=== PATIENT | female | born 1995 | race Asian ===

== ENCOUNTER → 2018-08-15 | Outpatient (REF) | payer OTHER ==
[~2018-08-15] MED LIST: FERR325T16 PO; IRON27TA2 PO; PREN1PAK PO; VITA500T PO; VITA500T3 PO; [UNRECOGNIZED DRUG - CODE] EX
[2018-08-15 20:51] LABS: CHLAMYDIA DNA AMPLIFICATION NEGATIVE (NEGATIVE); GC DNA AMPLIFICATION NEGATIVE (NEGATIVE)
== END ==
LOC: M LAB REF 15:16
PROVIDERS: ATTEND Physician Assistant
DX: R30.0 Dysuria (principal)

== ENCOUNTER 2019-01-14 12:03 | Outpatient (CLI) | payer OTHER ==
[~2019-01-14] VITALS: Ht 170.2 cm; Wt 99.6 kg
[~2019-01-14 12:03] MED LIST changes: +CYAN500T8 PO; +METR-265 PO; +QC A10TA PO; -VITA500T3 PO
[2019-01-14] MEDS ORDERED: FLUC150T PO (12:36)
--- NOTE | 2019-01-14 13:15 | IPNPDOC ---
Text Note Date of Service The patient was seen on 01/14/19. NOTE patient is a 23 yo G1 @ 27+6 wks gestation presents with concern for not feeling baby move x 3 days. patient states baby used to be very active before. She sees her abdomen move but does not feel the baby move. having mild epigastric pain. denies cramping/vb/lof/fever. vitals: normal NAD, laying in bed back without tenderness abd: gravid, soft, nt le: no edema/erythema/tenderness fht: 130/mod lynette/no accel, no decel, reasuring for gestational age toco: quiet. a/p patient at 27+6wks, normal exam. discussed with patient regarding kick count and contractions. return precautions given. f/u as scheduled in clinic or sooner as indicated. DO VIBHA Blanchard LUAT N. DO Jan 14, 2019 13:15
[2019-03-27] MEDS ORDERED: FERR325T18 PO (11:01)
== END 2019-01-14 13:04 | disposition home or self-care (01) ==
LOC: M LDO 12:03
PROVIDERS: ATTEND Obstetrics & Gynecology
DX: O36.8120 Decreased fetal movements, second trimester, not applicable or unspecified (principal); Z3A.27 27 weeks gestation of pregnancy
CPT/HCPCS: G0378; G0463

== ENCOUNTER 2019-04-06 20:23 | Outpatient (CLI) | payer OTHER ==
[~2019-04-06] VITALS: Ht 170.2 cm; Wt 107.0 kg
[~2019-04-06 20:23] MED LIST changes: +FERR325T18 PO; +FLUC150T PO
[2019-04-06 20:45] VITALS: BP 128/61
--- NOTE | 2019-04-06 22:37 | IPNPDOC ---
Text Note Date of Service The patient was seen on 04/06/19. NOTE Triage Note Beatris is a 23yo with SIUP at 39+wk who presents tonight for concern regarding her bp that she checked at [facility] because she felt slightly lightheaded. She states that her systolic bp was in the 160's. She notes that she sat for a minute or so before taking it and then re-checked it and got a similar result. She has no JOSE/vision changes/RUQ pain. Feels good mo vement. No regular ctx/LOF/vaginal bleeding. No prior abnormal bp's in this . Elevated 1hr glucola with normal 3hr GTT. Anemia with beta thal, received iron infusion 03/27. PMhx significant for obesity (starting BMI 33) Vitals wnl (normotensive), afebrile General: WDWN, sitting in bed resting comfortably Abdomen: soft, gravid, NTTP Extremities: no edema of BLE NST reactive with +accels, -decels, mod lynette Point: no ctx Assessment: Beatris is a 23yo with SIUP at 39+wk with no evidence of el evated bp. Has never had an elevated bp on chart review of her entire . status reassuring. Plan: -Safe for discharge home -Keep next OB visit this week on 04/08 -Return precautions discussed -Encouraged excellent hydration Dr. Asha Aceves MD VS,Lacey, I+O VS, Lacey, I+O Vital Signs Date Time Temp Pulse Resp B/P (MAP) Pulse Ox O2 Delivery O2 Flow Rate FiO2 04/06/19 20:45 97.8 103 18 128/61 (83) 98 Asha Aceves MD Apr 06, 2019 22:37
== END 2019-04-06 21:30 | disposition home or self-care (01) ==
LOC: M LDO 20:23
PROVIDERS: ATTEND Obstetrics & Gynecology
DX: O26.893 Other specified pregnancy related conditions, third trimester (principal); R51 Headache; R42 Dizziness and giddiness; Z3A.39 39 weeks gestation of pregnancy
CPT/HCPCS: 59025; G0378; G0463

== ENCOUNTER 2019-04-12 09:53 | Outpatient (CLI) | payer OTHER ==
[~2019-04-12] VITALS: Ht 170.2 cm; Wt 108.1 kg
[2019-04-12 10:14] VITALS: BP 112/59
[2019-04-12] MEDS ORDERED: IRONTAB3 IV (10:39)
--- NOTE | 2019-04-12 11:28 | IPNPDOC ---
Text Note Date of Service The patient was seen on 04/12/19. NOTE patient is a 23 yo G1 @ 40+2wks gestation presents with concern for decreased movement since this AM. denies ctx/lof/vb. feeling baby move while in triage. vitals: normal nad abd: gravid, soft, nt, cephalic by anthony le: no edema/erythema/tenderness fht: 135/mod lynette/pos accel/no decel toco: quiet a/p patient @ 40+2wks doing well. discussed return precautions. f/u in clinic as scheduled. VS,Fishbone, I+O VS, Fishbone, I+O Vital Signs Date Time Temp Pulse Resp B/P (MAP) Pulse Ox O2 Delivery O2 Flow Rate FiO2 04/12/19 10:14 98.5 80 16 112/59 (76) KIRA DUNNE DO Apr 12, 2019 11:28
== END 2019-04-12 11:30 | disposition home or self-care (01) ==
LOC: M LDO 09:53
PROVIDERS: ATTEND Obstetrics & Gynecology
DX: O36.8130 Decreased fetal movements, third trimester, not applicable or unspecified (principal); Z3A.40 40 weeks gestation of pregnancy
CPT/HCPCS: 59025; G0378; G0463

== ENCOUNTER 2019-04-14 01:41 | Outpatient (CLI) | payer OTHER ==
[~2019-04-14 01:41] MED LIST changes: +IRONTAB3 IV
[2019-04-14 01:57] VITALS: BP 128/83
--- NOTE | 2019-04-14 02:35 | IPNPDOC ---
Text Note Date of Service The patient was seen on 04/14/19. NOTE 23 yo at 40+4 weeks gestation presented to L&D reporting regular, panful contractions. She has some discharge but denies any leakage of fluid or vaginal bleeding. She endorses movement. Chaperoned by L&D RN Vitals - VSS, afebrile, normotensive, non tachycardic General - AAOX3, sitting up in bed, pleasant and conversant, NAD Abdomen - Gravid uterus, no fundal tenderness Cervix: 1-2/50/-3 FHR tracing - Reactive NST, +accels, no decels, moderate variability, Irregular contractions on toco Patient not in active labor. status reassuring. Discharged home with return precautions. She has an appointment today in the office in ~8 hours. Return to care sooner for any urgent concerns. All patient questions answered. DO MICHELLE Gomez CHRISTOPHER J. DO Apr 14, 2019 02:35
== END 2019-04-14 02:32 | disposition home or self-care (01) ==
LOC: M LDO 01:41
PROVIDERS: ATTEND Obstetrics & Gynecology
DX: O47.1 False labor at or after 37 completed weeks of gestation (principal); Z3A.40 40 weeks gestation of pregnancy
CPT/HCPCS: 59025; G0378; G0463

== ENCOUNTER 2019-04-16 01:40 | Inpatient (IN) | payer OTHER ==
[2019-04-16] VITALS (55 sets, daily range): BP systolic 102–153; BP diastolic 55–92
[~2019-04-16] VITALS: Ht 170.2 cm; Wt 108.7 kg
[2019-04-16] MEDS ORDERED: LACTATED RINGER'S 1000 ML IV STA (03:54)
[2019-04-16 04:07] LABS: HEMATOCRIT 30.4 % (36.0-47.0); HEMOGLOBIN 8.9 g/dl (12.0-15.5); MEAN CORPUSCULAR HGB CONC 29.3 g/dl (32.0-36.5); MEAN CORPUSCULAR VOLUME 71.7 fl (80.0-96.0); PLATELET COUNT, AUTOMATED 223 10^3/uL (150-450); RED BLOOD COUNT 4.24 10^6/uL (4.00-5.40); WHITE BLOOD COUNT 22.3 10^3/uL (4.0-10.0)
[2019-04-16 04:16] LABS: ALT/SGPT 19 U/L (12-78); BILIRUBIN,TOTAL 1.3 MG/DL (0.2-1.0); GLOMERULAR FILTRATION RATE > 60.0 (>60); LDH LACTATE DEHYDROGENASE 282 U/L (84-246); URIC ACID 5.1 MG/DL (2.6-6.0)
--- NOTE | 2019-04-16 04:22 | HPEPDOC ---
Obstetrical History & Physical General Date of Admission Apr 16, 2019 at 02:13 History of Present Illness Beatris is a 23yo with SIUP at 40w6d by lmp c/w 8wk u/s who presents with increasingly painful and consistent ctx for the past 3 hours. Just after admission, she had SROM, thick mec, at 0400. No vaginal bleeding other than slight blood tinged mucous lost over the past two days since cervix check in the office where she was 2cm. She has felt good movement. No f/c/n/v/CP/SOB/JOSE/vision changes. Chief Complaint: Contractions, term, LOF, term Information Provided By: Patient Care Care: Good Care Dating Final EDC: Apr 10, 2019 Final EDC by: LMP, 1st trimester (US) Antepartum Course Diagnos(e)s Obesity with starting BMI 33 and elevated 1hr glucola w/normal 3hr GTT, anemia related to beta thal minor taking iron/vit C having received iron infusions 12/11/18 and 03/27/19 Height (inches): 67 Pre- weight (lbs.): 212 Admission Weight (lbs.): 235 Change in Weight (lbs.): 23 Past Medical History Past Obstetrical History : Past Obstetrical History: Primgravida COOK VACUUM KETTLE History: No pertinent history Past Medical History Medical History Betal thal minor with chronic anemia Surgical History: Other (oral surgery) Family History Significant Family History: No pertinent family hx Social History Marital Status: Family situation: Spouse/partner home Psychosocial History: No pertinent psych hx * Smoker: non-smoker Alcohol: Denies Drugs: denies Imunizations Tdap status: current Influenza Status: current Allergies Coded Allergies: No Known Allergies (Unverified , 01/14/19) Medications Scheduled Ascorbic Acid (Vitamin C) 500 Mg Tab, 1 TAB PO DAILY Ferrous Sulfate (Ferrous Sulfate) 325 Mg Tablet, 1 TAB PO DAILY [Iron] , IV Q30D Miscellaneous Medications [id number]/Levomefolate/Omega3/Dha ( Plus-Dha Combo Pack) 1 Sean Sean, 1 SEAN PO Physical Examination Physical Examination GENERAL: Alert and oriented times three. ABDOMEN: Gravid and non-tender to touch. FETUS: Is vertex (VTX) by sterile vaginal examination (SVE) EXTREMITIES: trace edema BLE Laboratory Data 24H LABS Laboratory Tests 2 04/16/19 02:20: Serology Scanned Report Hepatitis B Testing CBC/BMP 13 Apr 2019 Hgb 9/Hct 29.5, plt 250 Pertinent Laboratoy Data Blood Type: O+ RBC Antibody Screen: Negative HIV: Negative Hepatitis B: Negative Hepatitis C: Unknown Rapid Plasma Reagin: Nonreactive Rubella: Immune Varicella: Immune Chlamydia/Gonorrhea: Negative Group B Streptococcus: Negative Quad Screen Test: Negative Glucose Tolerance Test: 150 (88/177/137/116) Anatomy Ultrasound Ultrasound Date: Nov 21, 2018 Placenta Location: Posterior Normal Anatomy: Yes Placenta Previa: No Steroid Therapy Steroid Therapy: No Vaginal Examination Dilation: 4 cm Effacement: 50% Station: -2 Cervical Consistency: Soft Cervical Position: Anterior Presentation: Cephalic presentation Assessment Heart Rate (FHR): 160 Variability: Minimal to moderate Accelerations: Positive Decelerations: None Tocometer Contractions: Yes Frequency: regular, every 2-5 min. Duration: greater than 60 seconds Strength: palpated as strong Assessment/Plan Assessment Beatris is a 23yo with SIUP at 40w6d by lmp c/w 8wk u/s in active labor with SROM, thick mec, upon admission at 0400. Cat I-II FHRT w/bl 160, min-mod lynette, +accels, -decels. SCE 4/50/-2. Ctx q2-3min. GBS neg. Cephalic by SCE. course/PMhx significant for: Obesity with starting BMI 33 and elevated 1hr glucola w/normal 3hr GTT, anemia related to beta thal minor taking iron/vit C having received iron infusions 12/11/18 and 03/27/19. H/H on 04/13 was 9/29.5. Plan Admit and orient. Residential Leasing Manager and consent. Diet: clear liquids Group B Streptococcus (GBS) negative Labs and intravenous (IV) per unit protocol. also pre-E panel and urine prot:creat Lactated Ringers (LR): Bolus 500 mL, then at 125 mL/hr. Anticipate normal spontaneous delivery () Nursing staff will inform director of religious life of presence of meconium Candidate for epidural as desired MD Ketan Adame Katrina D MD Apr 16, 2019 04:15
[2019-04-16 04:56] LABS: CREATININE,RANDOM URINE 27.4 MG/DL; TOTAL PROTEIN,RANDOM URINE 10.2 MG/DL (0.0-12.0)
[2019-04-16] MEDS: LR 1,000 ML IV SCH ×4 (05:04→15:34)
[2019-04-16] MEDS ORDERED: ACETAMINOPHEN 500 MG TAB PO ONE (05:15)
[2019-04-16] MEDS: AMPICILLIN SOD/SULBACTAM SOD 3 GM in D5W MINI-BAG PLUS 100 ML IV SCH ×2 (05:37→10:57)
[2019-04-16] MEDS ORDERED: FENTANYL 2MCG/ML ROPIVACAINE 0.2% IN 0.9% NACL 100ML IVBAG As Ordered ONE (07:18)
[2019-04-16] MEDS ORDERED: diphenhydrAMINE INJ 50MG/ML VIAL (J1200) IV PRN ×2 (07:35→13:48)
[2019-04-16] MEDS ORDERED: FENTANYL/ROPIVACAINE/NACL BAG 100 ML EPIDURAL SCH (07:35)
[2019-04-16] MEDS ORDERED: EPIDURAL COMMENT XX SCH (07:35)
[2019-04-16] MEDS ORDERED: NALOXONE INJ 0.4 MG/1 ML VIAL (J2310) IV PRN ×3 (07:35→13:48)
[2019-04-16] MEDS ORDERED: LACTATED RINGER'S 1000 ML IV PRN (07:35)
[2019-04-16] MEDS ORDERED: EPIDURAL/PCA KEYS XX PRN (07:35)
[2019-04-16] MEDS ORDERED: ePHEDrine SULFATE 25 MG/5 ML(5MG/ML) SYRINGE IV PRN (07:35)
[2019-04-16] MEDS ORDERED: ONDANSETRON 4MG/2ML VIAL (J2405) IV PRN ×4 (07:35→20:30)
[2019-04-16] MEDS ORDERED: REFRIGERATOR IV KEYS XX PRN (07:35)
[2019-04-16] MEDS ORDERED: OXYTOCIN DRIP 30 UNITS in IV 1 EA IV SCH (08:00)
--- NOTE | 2019-04-16 08:29 | IPNPDOC ---
Text Note Date of Service The patient was seen on 04/16/19. NOTE Intrapartum Note I was called by RN regarding persistent tachycardia and new fever around 0500. Confirmed oral temp of 101F, which is unexpected given that she had SROM at 0400 and is GBS negative. I initiated Unasyn 3g q6hr with tylenol given the new diagnosis of chorioamnionitis. Patient is now receiving epidural. FHRT Cat I-II with min-mod lynette, no decels, occasional accels. Patient had a couple mild range bp's on admission, so urine prot:creat ordered which returned 0.37, so she also has new dx of pre-E withOUT severe features. Ctx have spaced out, so initiating pitocin. Report given to MARY Cornell and Dr. Mcneal. Dr. Asha Aceves MD VS,Lacey, I+O VS, Lacey, I+O Laboratory Tests 04/16/19 02:27 Vital Signs Date Time Temp Pulse Resp B/P (MAP) Pulse Ox O2 Delivery O2 Flow Rate FiO2 04/16/19 06:15 101.2 04/16/19 05:45 114 125/75 (92) 04/16/19 05:04 18 Asha Aceves MD Apr 16, 2019 08:29
--- NOTE | 2019-04-16 11:07 | IPN ---
DATE: 04/16/2019 This is a 23-year-old 1, para 0 at 40 and 6, who presented with contractions after a spontaneous rupture of membranes of thick meconium. While here in labor and delivery, she never established a category 1 strip, it was basically category 2 requiring oxygen boluses, positional change and with resuscitative mass measures did not demonstrate any change in the heart rate strip however, there were no decelerations. There was no accelerations. There was variability from mild to moderate with a baseline of 150-160. Her vital signs noted that at 8:15 a.m. her temperature was 99.3. Earlier at 6:15 in the morning had one elevated temperature of 101.2. The previous physician considered that as chorioamnionitis. Her CBC indicated an elevated white count at 22.3. With her chemistry, it showed uric acid was normal, protein creatinine ratio was 0.37, which would give her diagnosis of preeclampsia. Repairing Calibrator consulting with the primary therapist because of the heart rate strip and failure to progress after 4 hours. The thought process was the possibility of section despite the resuscitative measures. On pelvic examination, it was noted that the baby's head was ballotable, not well applied to the cervix. There was meconium present, but she is 6 cm, rather thick, but still made some significant progress from before. With oxygen, the baby's comes to a category 1 strip. Contractions are spaced but she is making some progress. We will allow her to continue on this path as long as the baby is not compromised and reassess in a couple of hours time. In summary, we have a late term with meconium stained liqua, possible diagnosis of chorioamnionitis and preeclampsia with some significantly slow progress in the second stage.
[2019-04-16] MEDS ORDERED: ACETAMINOPHEN *IV* 1,000 MG in IV 1 EA IV ONE (12:00)
[2019-04-16] MEDS ORDERED: BICITRA 30ML SOLN UDC PO ONE (12:15)
[2019-04-16] MEDS ORDERED: ceFAZolin SOD 2 GM in IV 1 EA IV ONE (12:15)
[2019-04-16] MEDS ORDERED: AZITHROMYCIN INJ 500 MG, VIAL MATE ADAPTER 1 EACH in D5W 250 ML IV ONE (12:15)
[2019-04-16] MEDS ORDERED: BUPIVACAINE HCL 0.25% 10 ML VIAL SC ONE (12:15)
[2019-04-16] MEDS ORDERED: LIDOCAINE 2% W/EPIN INJ 20ML **PRES FREE As Ordered ONE (12:36)
[2019-04-16] MEDS ORDERED: OXYTOCIN INJ 10 UNITS/ML VIAL (J2590) As Ordered ONE ×3 (12:40→12:44)
[2019-04-16] MEDS ORDERED: ACETAMINOPHEN 650 MG SUPP PR SCH (13:00)
[2019-04-16] MEDS ORDERED: ONDANSETRON 4MG/2ML VIAL (J2405) As Ordered ONE (13:05)
[2019-04-16] MEDS ORDERED: KETOROLAC 60 MG/2 ML VIAL (J1885) As Ordered ONE (13:05)
[2019-04-16] MEDS ORDERED: dexameTHASONE 4 MG/ML 1ML VIAL (J1100) As Ordered ONE (13:05)
[2019-04-16 13:27] LABS: CORD GAS ABE A -3.8; CORD GAS HCO3 A 24.3 MEQ/L; CORD GAS O2 SAT A 16.8 %; CORD GAS PCO2 A 56.7 mmHg; CORD GAS PH A 7.249 UNITS; CORD GAS PO2 A 12.3 mmHg; CORD GAS SBC A 19.6 MEQ/L
[2019-04-16 13:29] LABS: CORD GAS ABE V -3.3; CORD GAS HCO3 V 23.3 MEQ/L; CORD GAS O2 SAT V 48.6 %; CORD GAS PCO2 V 47.5 mmHg; CORD GAS PH V 7.308 UNITS; CORD GAS PO2 V 23.1 mmHg; CORD GAS SBC V 20.6 MEQ/L; CORD GAS TCO2 V 24.7 MEQ/L
[2019-04-16] MEDS ORDERED: ACETAMINOPHEN 1000MG 100ML IV BTL (OFIRMEV) (J0131 PER 10MG) As Ordered ONE (13:30)
[2019-04-16] MEDS ORDERED: MORPHINE PRES-FREE INJ 10 MG/10 ML VIAL (J2274) As Ordered ONE (13:45)
[2019-04-16] MEDS ORDERED: METOCLOPRAMIDE INJ 10MG/2ML VIAL (J2765) IV PRN ×3 (13:48→20:30)
[2019-04-16] MEDS ORDERED: NALBUPHINE HCL 10 MG/ML AMP (J2300) IV PRN (13:48)
[2019-04-16] MEDS ORDERED: fentaNYL 100 MCG/2 ML INJECTION (J3010) IV PRN (14:30)
[2019-04-16] MEDS ORDERED: LR 1,000 ML IV SCH (14:30)
[2019-04-16] MEDS ORDERED: PERCOCET 5MG/325MG TAB PO PRN ×3 (14:30→15:45)
[2019-04-16] MEDS ORDERED: RHOGAM 300 MCG (1500 IU) INJ (J2790) IM SCH (15:45)
[2019-04-16] MEDS ORDERED: ANUSOL HC CREAM 30GM TOP PRN (15:45)
[2019-04-16] MEDS ORDERED: DOCUSATE SODIUM 100 MG CAP PO PRN (15:45)
[2019-04-16] MEDS ORDERED: AMPICILLIN SOD/SULBACTAM SOD 3 GM in D5W MINI-BAG PLUS 100 ML IV ONE ×2 (15:45→17:00)
[2019-04-16] MEDS ORDERED: METHYLERGONOVINE MALEATE 0.2 MG TAB PO PRN (15:45)
[2019-04-16] MEDS ORDERED: ACETAMINOPHEN 500 MG TAB PO PRN (15:45)
[2019-04-16] MEDS ORDERED: OXYTOCIN DRIP 30 UNITS in IV 1 EA IV ONE (15:45)
[2019-04-16] MEDS ORDERED: ACETAMINOPHEN TAB 650MG DOSE (2X325MG) PO PRN (15:45)
[2019-04-16] MEDS ORDERED: MEASLES,MUMPS,RUBELLA VACCINE INJ (MMR-II) (90707) SC SCH (15:45)
--- NOTE | 2019-04-16 17:55 | IPN ---
DATE: 04/16/2019 This lady is a 1, para 0 admitted 40 and 6 with contractions meconium stained liquor nonreassuring heart tones. She eventually was evaluated and found to progress from 4 cm to 6 cm still with meconium stained Liqua and an intermittent nonreassuring heart tones despite the multiple resuscitative measures after 2 hours in evaluation with now a tachycardia of 180 we elected to go ahead with a primary section. We discussed risks and benefits section for the mother and her and the fact that we have a nonreassuring heart tone elevated temperature in the mother 101 and she is not progressing. The safest measure would be a primary section. Risks and benefits including hemorrhage, infection, perforation, , reoperation, remote possibility hysterectomy, remote possibility of laceration, remote possibility of the baby in NICU because of meconium aspiration or the fever. Risks and benefits all were discussed and reviewed all questions were answered. 20-minute discussion. We now await anesthesia for a top off of her epidural.
[2019-04-16 20:21] LABS: HEMATOCRIT 25.4 % (36.0-47.0); HEMOGLOBIN 7.5 g/dl (12.0-15.5); MEAN CORPUSCULAR HGB CONC 29.5 g/dl (32.0-36.5); MEAN CORPUSCULAR VOLUME 71.1 fl (80.0-96.0); PLATELET COUNT, AUTOMATED 227 10^3/uL (150-450); RED BLOOD COUNT 3.57 10^6/uL (4.00-5.40); WHITE BLOOD COUNT 21.5 10^3/uL (4.0-10.0)
[2019-04-16] MEDS: KETOROLAC 30 MG/ML VIAL (J1885) IV SCH (20:48)
--- NOTE | 2019-04-16 23:14 | RO ---
DATE OF PROCEDURE: 04/16/2019 PREOPERATIVE DIAGNOSES: Nonreassuring heart tones, chorioamnionitis, meconium liquor, tachycardia, maternal fever, beta thalassemia minor, history of pre-eclampsia. POSTOPERATIVE DIAGNOSES: Nonreassuring heart tones, chorioamnionitis, meconium liquor, tachycardia, maternal fever, beta thalassemia minor, history of pre-eclampsia, plus cord entrapment. OPERATION PROPOSED: Primary section. OPERATION PERFORMED: Primary section. SURGEON: Marco Mcneal MD UNIT MANAGER CONVENIENCE STORES: Mehul Cornell, Nurse Certified Medical Coding Specialist ANESTHESIA: Epidural. ESTIMATED BLOOD LOSS: 400 mL DESCRIPTION OF PROCEDURE: After adequate time-out, prepped and draped in the supine position, Troncoso catheter in the bladder draining clear urine, acetaminophen suppository 1300 mg per rectum, antibiotics appropriately preoperative sequentials in place. Acetaminophen suppository 1300 mg per rectum, a Pfannenstiel incision was made two fingerbreadths above the symphysis pubis passing through abdominal layers securing hemostasis. Opening peritoneal cavity, bladder was reflected well down anteriorly, a low transverse incision was then made into the uterus. Meconium stained liquor was noted. We delivered a live female infant with forceps evacuation weighing 7 pounds 2 ounces, 3224 grams, of 9, 9 at one and five minutes respectively. Cord was entrapped around both ankles times two. Arterial pH 7.24, base excess -3.8, venous pH 7.30, base excess -3.3. Dr. Santos in attendance for resuscitation. No meconium below the cords. The placenta was manually removed. Cultures were performed on the placental side because of maternal fever, tachycardia, tachycardia and elevated white count of 22,000. Placenta and tissues were removed, the uterus was swept clean. The lower segment was identified. The lower segment was oversewn in usual fashion in two layers and reperitonealized was performed. With instrument and pad count correct, blood was evacuated. Both tubes and ovaries appeared to be normal. We closed the lower segment in two layers embrocating the second layer, reperitonealized of the flap. The abdomen was then closed; running stitch for the peritoneum, same for the fascia, interrupted for subcutaneous. Dexon to the skin, Marcaine 0.25% 10 mL spray and Telfa and the patient was taken back to the recovery room in good condition.
[2019-04-17] MEDS ORDERED: PROMETHAZINE INJ 25 MG/ML VIAL (J2550) IV ONE (00:15)
[2019-04-17] MEDS ORDERED: LACTATED RINGER'S 1000 ML IV ONE (00:15)
[2019-04-17] MEDS: LR 1,000 ML IV SCH ×4 (00:34→23:34)
[2019-04-17] MEDS: KETOROLAC 30 MG/ML VIAL (J1885) IV SCH ×2 (02:54→09:30)
[2019-04-17 06:00] VITALS: BP 125/81
--- NOTE | 2019-04-17 07:31 | IPN ---
DATE: 04/17/2019 This lady 23 old 1 now para 1 had meconium stained liquid at 40 and 6 weeks of gestation. Had a primary section because of chorioamnionitis meconium liquid, non-reassuring heart tones, preeclampsia, maternal fever and beta thalassemia minor. She delivered a live female 7 pounds 2 ounces 3224 grams, of 9 and 9 at one and five minutes respectively. Arterial pH 7.24, base excess -3.8, venous pH 7.30, base excess -3.3. She had a difficult night with the extreme nausea and vomiting, required promethazine, Reglan the patch in order to help or assist in her extreme nausea and vomiting. This morning, she is no longer nausea and vomiting. She is able to tolerate fluids well. Blood pressure 125/81, respirations 17, pulse 91, temperature 97.6. She has been afebrile now for almost 24 hours. She did receive one extra dose of Unasyn. Her admitting hemoglobin was 8.9, hematocrit 30.4 and platelets were 223 and a white count was 23.3. At 4 hours post delivery, her hemoglobin was 7.5, hematocrit 25.4 and platelets 227. Her white count was 21.5. She has a repeat CBC at 0600 hours for evaluation and comparison. She is presently afebrile, moving well, mobilizing, passing gas. Diuresing as we speak. Her total urine output was 1100, the last check it was 350 mL. In summary we have a term gestation delivered a live female . Chorioamnionitis appears to be resolved. The rest the examination is unremarkable. She is normocephalic, atraumatic. Neck: Full range of motion. Pupils equal and reactive to light. Distal pulses symmetric. No evidence of deep venous thrombosis (DVT), pulmonary embolus (PE) or superficial phlebitis. Chest is clear bilaterally bases. No wheezes or rhonchi. Abdomen: Soft uterus 2 below. Lochia is moderate. Four-quadrant bowel sounds. Incision is clean and dry. We anticipate mobilizing her removing the Troncoso catheter, capping the IV and continue with a regular diet.
[2019-04-17 07:35] LABS: HEMATOCRIT 24.6 % (36.0-47.0); HEMOGLOBIN 7.3 g/dl (12.0-15.5); MEAN CORPUSCULAR HEMOGLOBIN 21.3 pg (27.0-33.0); MEAN CORPUSCULAR HGB CONC 29.7 g/dl (32.0-36.5); MEAN CORPUSCULAR VOLUME 71.9 fl (80.0-96.0); PLATELET COUNT, AUTOMATED 245 10^3/uL (150-450); RED BLOOD COUNT 3.42 10^6/uL (4.00-5.40); WHITE BLOOD COUNT 18.5 10^3/uL (4.0-10.0)
[2019-04-17] MEDS: PRENATAL VITAMINS CHEWABLE TABLET PO SCH (09:28)
[2019-04-17 10:29] VITALS: BP 118/70
[2019-04-17 14:00] VITALS: BP 123/69
[2019-04-17] MEDS: IBUPROFEN 800 MG TAB PO SCH ×2 (16:37→23:45)
[2019-04-17 18:00] VITALS: BP 141/82
[2019-04-17 22:02] VITALS: BP 117/57
[2019-04-18 02:23] VITALS: BP 131/74
[2019-04-18 06:06] VITALS: BP 119/73
[2019-04-18] MEDS: PRENATAL VITAMINS CHEWABLE TABLET PO SCH (08:55)
[2019-04-18] MEDS: IBUPROFEN 800 MG TAB PO SCH ×3 (08:56→23:46)
[2019-04-18 10:06] VITALS: BP 136/73
--- NOTE | 2019-04-18 12:28 | IPNPDOC ---
Progress Note Date of Service: Apr 18, 2019 Day#: 2 Progress Note POD 2 SUBJECT: Beatris is a 23yo [id number] s/p uncomplicated PLTCS late on 04/16 indicated for NRFHT in the context of chorioamnionitis and pre-eclampsia withOUT severe features, doing well /post-op day # 2. She has been ambulating without lightheadedness/dizziness, voiding spontaneously without issue and tolerating regular diet. Baby is in the NICU 2/2 chorio, receiving O2 and IVF. Patient reports lochia is like a normal period. Her pain is well controlled on motrin alone. Passing flatus but no BM yet. She denies f/c/n/v/CP/SOB/JOSE/vision changes. OBJECTIVE: VITAL SIGNS: Low mild range to normotensive bp's, afebrile. Alert and oriented times three. Abdomen: Fundus firm at U-2. Soft, appropriately tender to palpation. Pfannensteil incision is clean/dry/intact with no erythema/induration/drainage. Extremities: trace edema of BLE Labs: 04/16 H/H: 8.9/30.4 / WBC count: 22.3 04/17 H/H: 7.3/24.6 / WBC count: 18.5 ASSESSMENT: Beatris is a 23yo [id number] s/p uncomplicated PLTCS late on 04/16 indicated for NRFHT in the context of chorioamnionitis and pre-eclampsia withOUT severe features, doing well /post-op day # 2. Normotensive to low mild range bp's, afebrile, hemodynamically stable with no evidence of infection. No e/o worsening pre-E. PLAN: 1. Continue routine post-op/ care 2. Motrin for pain. Percocet prn if motrin not sufficient. 3. Encourage visiting baby in NICU and ambulation. 4. Regular diet 5. Ok to remove IV 6. Encourage use of IS Dr. Asha Aceves MD VS, I&O, 24H, Fishbone Vital Signs/I&O Vital Signs Date Time Temp Pulse Resp B/P (MAP) Pulse Ox O2 Delivery O2 Flow Rate FiO2 04/18/19 10:06 97.8 84 18 136/73 (94) 04/18/19 06:06 99 04/17/19 06:00 Room Air I&O- Last 24 Hours up to 6 AM 04/18/19 06:00 Output Total 1150 ml Balance -1150 ml Laboratory Data Microbiology Microbiology 04/16/19 Bacterial Culture, Received Pending Asha Aceves MD Apr 18, 2019 12:28
[2019-04-18 18:03] VITALS: BP 122/70
[2019-04-19 06:00] VITALS: BP 118/72
[2019-04-19] MEDS: PRENATAL VITAMINS CHEWABLE TABLET PO SCH (08:46)
[2019-04-19] MEDS: IBUPROFEN 800 MG TAB PO SCH ×2 (08:46→16:00)
[2019-04-19] MEDS ORDERED: IRON SUCROSE 100MG 5ML VIAL (J1756 PER 1MG) IV ONE (12:15)
[2019-04-19 13:20] VITALS: BP 133/71
[2019-04-19] MEDS ORDERED: IRON SUCROSE 300 MG in NS 250 ML OVER 90 MIN. IV ONE (13:30)
[2019-04-19 13:45] VITALS: BP 136/83
[2019-04-19 14:45] VITALS: BP 135/80
[2019-04-19 15:31] VITALS: BP 141/87
--- NOTE | 2019-04-19 15:49 | IPNPDOC ---
Progress Note Date of Service: Apr 19, 2019 Day#: 3 Progress Note POD 3 SUBJECT: Beatris is a 23yo [id number] s/p uncomplicated PLTCS on 04/16 indicated for NRFHT in the context of chorioamnionitis and pre-eclampsia withOUT severe features, doing well /post-op day # 3. She has been ambulating without lightheadedness/dizziness, voiding spontaneously without issue and tolerating regular diet. Baby is in the NICU 2/2 chorio, no longer receiving O2 and IVF. Patient states baby is latching well to breastfeed. Patient reports lochia is like a normal period. Her pain is well controlled on motrin alone. She has now had 2 BMs. She denies f/c/n/v/CP/SOB/JOSE/vision changes. OBJECTIVE: VITAL SIGNS: Normotensive, afebrile. Alert and oriented times three. Abdomen: Fundus firm at U-2. Soft, appropriately tender to palpation. Pfannensteil incision is clean/dry/intact with no erythema/induration/drainage. Extremities: trace edema of BLE Labs: 04/16 H/H: 8.9/30.4 12/ WBC count: 22.3 12/ H/H: 7.3/24.6 12/13 WBC count: 18.5 ASSESSMENT: Beatris is a 23yo [id number] s/p uncomplicated PLTCS late on 04/16 indicated for NRFHT in the context of chorioamnionitis and pre-eclampsia withOUT severe features, doing well /post-op day # 3. Normotensive, afebrile, hemodynamically stable with no evidence of infection. No e/o worsening pre-E. PLAN: 1. Discharge today for boarding in the NICU 2. Encourage , ambulation, use of IS 3. Discussed with patient H/H and recommend iron sucrose infusion to assist with wound healing which she is amenable to. Will do iron transfusion prior to discharge. 4. Regular diet 5. Undecided on contraception 6. Will follow up in [place] clinic in 2 days for bp check and then 2 weeks for incision check with Dr. Mcneal 7. Discussed return precautions at length: f/c/increasing abdominal pain, foul smelling discharge, pain/redness of breasts, redness/pus of incision, anything concerning to her 8. No heavy lifting, vaginal rest 6 weeks 9. Rx given for percocet/motrin/colace Dr. Asha Aceves MD VS, I&O, 24H, Fishbone Vital Signs/I&O Vital Signs Date Time Temp Pulse Resp B/P (MAP) Pulse Ox O2 Delivery O2 Flow Rate FiO2 04/19/19 06:00 98.4 94 16 118/72 (87) 98 Room Air Laboratory Data Microbiology Microbiology 04/16/19 Bacterial Culture - Final, Complete Streptococcus Mitis Asha Aceves MD Apr 19, 2019 13:27
[2019-04-19] MEDS ORDERED: IBUP80TA PO (15:52)
[2019-04-19] MEDS ORDERED: PERCOCET PO (15:52)
[2019-04-19] MEDS ORDERED: DOCU100C16 PO (15:52)
--- NOTE | 2019-04-19 15:59 | DS.PDOC ---
Discharge Summary General Date of Admission Apr 16, 2019 at 02:13 Date of Discharge Apr 19, 2019 Attending Physician: Asha Aceves MD Discharge Summary PROCEDURES PERFORMED DURING STAY: primary low transverse section, iron infusion ADMITTING DIAGNOSES: 1. Active labor at term 2. Pre-eclampsia withOUT severe features 3. Anemia related to beta thalassemia minor 4. Obesity DISCHARGE DIAGNOSES: 1. Active labor at term, delivered via section for NRFHT in the setting of chorioamnionitis 2. Pre-eclampsia withOUT severe features 3. Anemia related to beta thalassemia minor, s/p iron infusion 4. Obesity COMPLICATIONS/CHIEF COMPLAINT: Labor Check. HISTORY OF PRESENT ILLNESS/HOSPITAL COURSE: Beatris is a 23yo [id number] s/p uncomplicated PLTCS on 04/16 indicated for NRFHT in the context of chorioamnionitis and pre-eclampsia withOUT severe features, doing well /post-op day #3. She has had a benign course and at time of discharge she is normotensive, afebrile, hemodynamically stable with no evidence of infection and no evidence of worsening pre-E. DISCHARGE MEDICATIONS: Please see below. ALLERGIES: Please see below. PHYSICAL EXAMINATION ON DISCHARGE: VITAL SIGNS: Normotensive, afebrile. Alert and oriented times three. Abdomen: Fundus firm at U-2. Soft, appropriately tender to palpation. Pfannensteil incision is clean/dry/intact with no erythema/induration/drainage. Extremities: trace edema of BLE LABORATORY DATA: Please see below. 04/16 H/H: 8.9/30.4 04/16 WBC count: 22.3 04/17 H/H: 7.3/24.6 04/17 WBC count: 18.5 DIET: Regular DISCHARGE INSTRUCTIONS/PLAN: 1. Discharge today for boarding in the NICU 2. Encourage , ambulation, use of IS 3. Discussed with patient H/H and recommend iron sucrose infusion to assist with wound healing which she is amenable to. Will do iron transfusion prior to discharge. 4. Regular diet 5. Undecided on contraception 6. Will follow up in [place] clinic in 2 days for bp check and then 2 weeks for incision check with Dr. Mcneal 7. Discussed return precautions at length: f/c/increasing abdominal pain, foul smelling discharge, pain/redness of breasts, redness/pus of incision, anything concerning to her 8. No heavy lifting, vaginal rest 6 weeks 9. Rx given for percocet/motrin/colace DISCHARGE CONDITION: Stable TIME SPENT ON DISCHARGE: Greater than [address] Asha Aceves MD Vital Signs/I&Os Vital Signs Date Time Temp Pulse Resp B/P (MAP) Pulse Ox O2 Delivery O2 Flow Rate FiO2 04/19/19 15:31 97.7 80 18 141/87 (105) 04/19/19 13:45 98 Room Air Microbiology Microbiology 04/16/19 Bacterial Culture - Final, Complete Streptococcus Mitis Discharge Medications Scheduled Ascorbic Acid (Vitamin C) 500 Mg Tab, 1 TAB PO DAILY Ferrous Sulfate (Ferrous Sulfate) 325 Mg Tablet, 1 TAB PO DAILY, (Reported) Ibuprofen (Ibuprofen) 800 Mg Tablet, 800 MG PO Q8H Scheduled PRN Docusate Sodium (Docusate Sodium) 100 Mg Capsule, 100 MG PO QHSP PRN for CONSTIPATION Oxycodone/Acetaminophen (Oxycodone-Acetaminophen 5-325) 1 Each Tablet, 2 TAB PO Q6H PRN for SEVERE PAIN (PS 8-10) Miscellaneous Medications [id number]/Levomefolate/Omega3/Dha ( Plus-Dha Combo Pack) 1 Mervat Mervat, 1 MERVAT PO, (Reported) Allergies Coded Allergies: No Known Allergies (Unverified , 01/14/19) Asha Aceves MD Apr 19, 2019 15:59
== END 2019-04-19 16:20 | disposition home or self-care (01) | DRG 771 ==
LOC: M LDO 01:40 → M LDI 02:13 → M OBS 15:30
PROVIDERS: ADMIT Obstetrics & Gynecology; ATTEND Obstetrics & Gynecology
PROC: 10D00Z1 Extraction of Products of Conception, Low, Open Approach (ICD-10-PCS; principal; 2019-04-16 13:00)
DX: O48.0 Post-term pregnancy (principal); O41.1230 Chorioamnionitis, third trimester, not applicable or unspecified; Z3A.40 40 weeks gestation of pregnancy; Z37.0 Single live birth; O77.0 Labor and delivery complicated by meconium in amniotic fluid; O99.214 Obesity complicating childbirth; E66.9 Obesity, unspecified; O14.04 Mild to moderate pre-eclampsia, complicating childbirth; O76 Abnormality in fetal heart rate and rhythm complicating labor and delivery; O69.2XX0 Labor and delivery complicated by other cord entanglement, with compression, not applicable or unspecified; O99.02 Anemia complicating childbirth; D56.3 Thalassemia minor

== ENCOUNTER → 2020-05-01 | Outpatient (REF) | payer OTHER ==
[~2020-05-01] MED LIST changes: +CYAN500T14 PO; -CYAN500T8 PO; +DOCU100C16 PO; +IBUP80TA PO; +PERCOCET PO; +VITA-243 PO; -VITA500T PO
== END ==
LOC: M LAB REF 09:48
PROVIDERS: ATTEND Physician Assistant
DX: R30.0 Dysuria (principal)